=== PATIENT | male | born 1955 | race Caucasian/White ===

== ENCOUNTER 2023-10-08 12:15 | Outpatient (OUT) | payer OTHER, MEDICARE, SELFPAY ==
--- NOTE | 2023-10-08 12:29 | XR_ITS ---
The [address] [address] Patient Name: VIKAS SARGENT MRN: [id number] date: 1955 Sex: M Assigned Patient Location: [facility] Current Patient Location: [facility] Accession/Order Number: [id number] Exam Date: 10/08/2023 12:34 Report Date: 10/08/2023 12:58 At the request of: SHABANA GONZALEZ Procedure: XR cervical spine 2-3V EXAMINATION: XR cervical spine 2-3V HISTORY: neck pain M54.2 COMPARISON: No relevant comparison available. FINDINGS: BONES: Normal alignment of the cervical vertebral bodies with no acute fracture or spondylolisthesis. Mild to moderate spondylosis and facet osteoarthropathy C5-6 DISC SPACES: Moderate disc space during C5-6 PARASPINOUS: Negative. No paraspinous abnormality is seen. OTHER: Negative. XR/XR cervical spine 2-3V IMPRESSION: Moderate degenerative changes C5-C6 Electronically authenticated by: NANCY ESCAMILLA Date: 10/08/2023 12:58
== END 2023-10-08 12:16 | disposition home or self-care (01) ==
PROVIDERS: PCP Family Medicine; Visit Provider Nurse Practitioner Family
DX: M54.2 Cervicalgia (principal)
CPT/HCPCS: 72040